=== PATIENT | female | born 1995 | race Caucasian/White ===

== ENCOUNTER 2020-10-14 10:36 | Emergency (ER) | payer MEDICAID, SELFPAY ==
[2020-10-14 10:39] VITALS: BP 114/80; PULSE 83; RESP 16; TEMP 36.9; O2SAT 100; BMI 20.6
--- NOTE | 2020-10-14 11:37 | ED_ITS ---
HPI - Skin/Abscess/Foreign Bdy General Chief complaint: Skin/Abscess/Foreign Body Stated complaint: rash on back Time Seen by Provider: 10/14/20 11:37 Source: patient, caseworker protective services and other (Legal guardian) Mode of arrival: ambulatory Limitations: no limitations History of Present Illness HPI narrative: This is a 24-year-old female presented with her legal guardian for evaluation of right buttock area cellulitis/abscess. 24-year-old female who Brown to skin infection and abscesses formation, patient was evaluated recently by her PCP for right buttock area infection, patient responded well to antibiotic and infection got better, patient finished a course of antibiotic now she is complaining of infection in the same spot. Questioning abscess formation in the right buttock area. Patient declined otherwise fever or chills. Related Data Previous Rx's Medication Instructions Recorded doxycycline hyclate 100 mg PO BID #20 tab 10/14/20 Allergies Allergy/AdvReac Type Severity Reaction Status Date / Time No Known Allergies Allergy Verified 10/14/20 10:45 [No Known Allergies*] Review of Systems Review of Systems: All other systems are reviewed and are negative Constitutional: Reports as per HPI and Reports no additional constitutional complaints Eyes: Reports as per HPI and Reports no additional eye complaints Reports system reviewed and no additional complaints, except as documented Cardiovascular: Reports as per HPI and Reports no additional cardiovascular complaints Respiratory: Reports as per HPI and Reports no additional respiratory complaints Gastrointestinal: Reports as per HPI and Reports no additional gastrointestinal complaints Genitourinary: Reports no additional female genitourinary complaints Musculoskeletal: Reports no additional musculoskeletal complaints Skin/Breast: Reports system reviewed and no additional complaints, except as docu Psychiatric: Reports no additional psychiatric complaints Endocrine: Reports no additional endocrine complaints Hematologic/Lymphatic: Reports no additional hematologic/lymphatic complaints Allergic/Immunologic: Reports no additional allergic/immunologic complaints Reports system reviewed and no additional complaints, except as documented and R eports Abnormal speech present [facility] Past Medical History Medical History delivery delivered Social History Social History Smoked in Last 30 Days: No Use of substances other than those prescribed or required for medical reasons: No Advance Directives: No Advance Directives Information Provided: No Physical Exam Vital Signs: Vital Signs: Last Vital Signs Temp 98.4 F 10/14/20 10:39 Pulse 83 10/14/20 10:39 Resp 16 10/14/20 10:39 BP 114/80 10/14/20 10:39 Pulse Ox 100 10/14/20 10:39 Body Mass Index 20.6 Vital signs have been reviewed as appeared to be correct. Blood pressure normal. Heart rate normal. Respiration rate normal. Temperature normal. Oxygen saturation normal. Appearance: Alert. Oriented X3. No acute distress. Head: Normal external exam. Normocephalic. Atraumatic. No Man signs noted. No raccoon eyes noted Eyes: PERRLA. EOMI. Conjunctiva and sclera normal. Eyelids normal. ENT: TM's Normal. Pharynx normal. Uvula midline. Moist mucous membranes. No trismus noted. No drooling noted. No muffled voice noted. Neck: Normal inspection. Neck supple. FROM. No adenopathy. Thyroid Normal. No meningeal signs. No neck mass noted. CVS: Normal heart rate and rhythm. Heart sound normal. No murmurs noted. Pulses normal throughout. Respiratory: No respiratory distress. Painless inspiration. Breath sounds normal. No wheezes/rales/rhonchi noted. Chest nontender. No accessory muscle usage noted or decreased air movement noted. Abdomen: Soft and nontender. Bowel sounds normal in all 4 quadrants. No distention noted. No organomegaly noted. No visible injury noted. Back: No CVA tenderness. Full range of motion noted. Skin: Skin warm and dry. Normal skin color. Normal skin turgor. No rashes/lesions/lacerations noted. Extremities: 3 x 3 cm area in the center of right gluteal area, area of redness, hotness, tenderness, no fluctuation, no discrete abscess. Neuro: Oriented X 3. No motor deficit. No sensory deficit. Reflexes normal. Course Course Course Narrative: Right gluteal area cellulitis with no abscess. Patient responded to antibiotic in the past. Will discharge the patient on another course of doxycycline have the patient come back for wound check in 2-3 days. Discharge Plan Discharge Clinical Impression: Cellulitis Qualifiers: Site of cellulitis: buttock Qualified Code(s): L03.317 - Cellulitis of buttock Patient Disposition: Home, Self-Care Instructions: Cellulitis (ED) Additional Instructions: Come back to the emergency department in 2-3 days for re-evaluation of your skin infection. Set in hot Sitz bath 2 to 3 times a day. Prescriptions: New doxycycline hyclate 100 mg tablet 100 mg PO BID Qty: 20 RF: 0 Referrals: Soraida Mcpherson MD [Primary Care Provider] - 1 week
== END 2020-10-14 11:55 | disposition home or self-care (01) ==
PROVIDERS: Emergency Provider Emergency Medicine; PCP Internal Medicine
DX: L03.317 Cellulitis of buttock (principal); Z79.899 Other long term (current) drug therapy
CPT/HCPCS: 99283

== ENCOUNTER 2022-12-30 18:58 | Emergency (ER) | payer MEDICAID, SELFPAY ==
[2022-12-30 19:04] VITALS: BP 120/67; PULSE 97; RESP 16; TEMP 36.6; O2SAT 95; BMI 28.3
--- NOTE | 2022-12-30 20:10 | ED_ITS ---
HPI - Animal Bite General Chief Complaint: Animal Bite Stated Complaint: Dog bite Time Seen by Provider: 12/30/22 19:52 Source: patient and family Mode of arrival: ambulatory Limitations: other History of Present Illness HPI narrative: 27-year-old female Moldovan-speaking with developmental delay nonverbal at baseline presents to emergency department with her father after a dog bite to her right arm. Patient owns a dog the dog is up-to-date on its shots patient is not up-to-date on tetanus. Patient has 2 cm gash to the right forearm. Patient denies fevers chills cough nausea vomiting diarrhea. Related Data Previous Rx's Medication Instructions Recorded doxycycline hyclate 100 mg tablet 100 mg PO BID #20 tabs 10/14/20 amoxicillin-potassium clavulanate 2 tab PO BID Dog bite #20 tabs 12/30/22 1,000 mg-62.5 mg tablet,ext.rel 12hr (Augmentin XR) Allergies Allergy/AdvReac Type Severity Reaction Status Date / Time No Known Allergies Allergy Verified 12/30/22 19:10 [No Known Allergies*] Review of Systems Review of Systems: Unable to obtain patient is nonverbal per diet has been acting normally PMFSH Past Medical History Medical History delivery delivered Social History Social History Advance Directives: No Advance Directives Information Provided: No Physical Exam ED Vital Signs: Vital Signs - 24 hr 12/30/22 19:04 Temperature 97.8 F Pulse Rate 97 Respiratory Rate 16 Blood Pressure 120/67 Pulse Oximetry 95 Oxygen Delivery Method Room Air BMI result Body Mass Index 28.3 General: Well-appearing well-nourished in no signs of distress HEENT: Normocephalic atraumatic Neck: No signs of JVD, no masses no tenderness or lymphadenopathy Cardiovascular: Regular rate and rhythm Respiratory: Clear to auscultation bilaterally Abdomen: Soft nontender no masses Extremities: Normal pedal pulses no signs of edema Skin: Small injury to right forearm Dry warm no rashes Back: No tenderness full ROM Medical Decision Making Medical Decision Making MDM Narrative: Dog bite I will start the patient on Augmentin patient otherwise looks well I did update tetanus and give some ibuprofen. Differential Diagnosis Differential Diagnoses: The differential diagnosis associated with the presentation includes Dog bite what to close by secondary intention. External Record Review External record reviewed: Inpatient record Discharge Plan Discharge Clinical Impression: Bite by animal, Dog bite Patient Disposition: Home, Self-Care Instructions: Animal Bite (ED) Additional Instructions: You were seen today for a dog bite. Please watch for signs of infection Please call to follow up. Prescriptions: New amoxicillin-pot clavulanate [Augmentin XR] 1,000-62.5 mg tablet extended release 12 hr 2 tab PO BID Qty: 20 0RF No Action doxycycline hyclate 100 mg tablet 100 mg PO BID Qty: 20 0RF
[2022-12-30] MEDS: Ibuprofen 400 MG TABLET PO (20:19)
[2022-12-30] MEDS: Amoxicillin/Potassium Clav 875 MG TABLET PO (20:19)
[2022-12-30] MEDS: Diphth,Pertus(ACell),Tet Adult 0.5 ML SYRINGE IM (20:20)
--- NOTE | 2022-12-30 20:24 | PC.NURSE ---
pt medicated per AUG tetanus updated. VIS given
== END 2022-12-30 20:26 | disposition home or self-care (01) ==
PROVIDERS: Emergency Provider Student in an Organized Health Care Education/Training Program; PCP Internal Medicine
DX: S50.871A Other superficial bite of right forearm, initial encounter (principal); W54.0XXA Bitten by dog, initial encounter; Y93.9 Activity, unspecified; Y92.9 Unspecified place or not applicable; Y99.9 Unspecified external cause status
CPT/HCPCS: 90471; 90715; 99283; 99284

== ENCOUNTER 2024-08-23 13:21 | Outpatient (REF) | payer MEDICAID, SELFPAY ==
--- OUTSIDE RECORDS SUMMARY | 2024-08-23 16:43 | XMS_ITS | Clinical Summary ---
Author Organization [employer] Address [address] [place] [address] [address] [place] [address] Care Team Providers Care Mutton Puncher Name Role Phone Soraida Mcpherson MD Primary Care Provide r Allergies No known active allergies Medications ibuprofen 600 MG tabletIndicatio ns:Dental abscess Take 1 tablet (600 mg) by mouth every 6 (six) hours if needed for mild pain for up to 20 doses. 20 tablet 3 Active Additional Information Patient not taking.Reported on 09/08/2022 Sod Fluoride-Potass ium Nitrate 1.1-5 % pasteIndication s:Dental caries [place] teeth for 2 minutes, morning and night. Spit, do not rinse. Do not eat or drink anything for 30 minutes following brushing. 96 g 3 3 Active chlorhexidine (Peridex) 0.12 % solutionIndicat ions:Gingivitis Swish for 30 seconds twice per day, morning and night. Use for 7 days. Do not use for more than 14 to prevent staining of teeth. 473 mL 3 Active Additional Information Patient not taking.Reported on 09/08/2022 polyethylene glycol, PEG, 3350 (MiraLax) 17 GM/SCOOP powder 17 grams in 8-12 oz fluid like water at bedtime prn constipation 527 g 2 4 Active docusate sodium (Colace) 100 MG capsule Take 1 tab po bid prn constipation 60 capsule 3 4 Active Active Problems Problem Noted Date Diagnosed Date Encounter for Papanicolaou smear of cervix 08/23 Assessment & Plan (08/23/2024 9:34 AM EST): PAP smear done, patient will be contacted with results Encounter for preventive care 06/08/2024 Assessment & Plan (06/08/2024 12:01 PM EST): See HPI Epigastric pain 06/26/2023 06/26/2023 Cognitive disorder 09/28/2017 06/26/2023 Encounters Date Type Department Care Team Description 08/23/2024 9:00 AM EST Procedure Visit [facility] MED[facility]INE [address] [place] [id number] Soraida Mcpherson MD Encounter for Papanicolaou smear of cervix (Primary Dx) 08/23/2024 Travel 06/08/2024 10:45 AM EST Office Visit [address] [id number] Soraida Mcpherson MD Encounter for preventive care (Primary Dx); Encounter for immunization 06/08/2024 Travel 06/06/[address] [address] Vishal Reece MA Chart Prep 05/30/2024 Patient Outreach [address] [address] Soraida Mcpherson MD Pre-visit Planning (SDOH screening negative and tobacco screening negative) from Last 3 Months Immunizations Name Administration Dates Next Due HPV 9-Valent 02/07/2019,12/27/2018 Influenza injectable quadrivalent preservative f ree 08/06/2018 Influenza, seasonal, injectable, preservative fr ee 06/08/2024 Tdap 12/30/2022 Social History Tobacco Use Types Packs/Day Years Used Date Smoking Tobacco: Never Passive Smoke Exposure: Never Smokeless Tobacco: Never Tobacco Cessation:Counseling Given: Not Answered Alcohol Use Standard Drinks/Week Comments Never 0 (1 standard drink = 0.6 oz pur e alcohol) Depression Answer Date Recorded Patient Health Questionnaire-9 Score 0 06/08/2024 Patient Health Questionnaire-9 Score 0 06/08/2024 Last PHQ-9: Questionnaire Data Not on file 1 08/09/2023 Housing Stability Answer Date Recorded What is your housing situation today? I have yana sing 05/30/[address] you li ve. Do you have problems with any of the following? None of the above 05/30/2024 Food Insecurity Answer Date Recorded Within the past 12 months, y ou worried that your food would run out before you got money to buy more: Never True 05/30/2024 Within the past 12 months,th e food you bought just didn't last and you didn't have enough money to get more: Never True 02/2024 Transportation Answer Date Recorded In the past 12 months, has l ack of transportation kept you from medical appts, meetings, work or from getting things needed for daily living? No 05/30/2024 Utilities Answer Date Recorded In the past 12 months, has t he electric, gas, oil or water company threatened to shut off services in your home? No 05/30/2024 Depression Answer Date Recorded Patient Health Questionnaire-2 Score 0 06/08/2024 Internet Access Answer Date Recorded Internet Access Q1 Yes 05/30/2024 Internet Access Q2 Not on file 05/30/2024 Comments No Sex and Gender Information Value Date Recorded Sex Assigned at Female 04/21/2022 10:33 AM EDT Legal Sex Female 10:33 AM EDT Gender Identity Female 07/24/2022 8:14 AM EST Sexual Orientation Straight 04/21/2022 10 :33 AM EDT Last Filed Vital Signs Vital Sign Reading Time Taken Comments Blood Pressure 115/80 08/23/2024 9:12 AM EST Pulse 78 08/23/2024 9:12 AM EST Temperature 36.2 ??C (97.1 ??F) 08/23/2024 9:12 AM ES T Respiratory Rate 18 08/23/2024 9:12 AM EST Oxygen Saturation 99% 08/23/2024 9:12 AM EST Inhaled Oxygen Concentration - - Weight 68.6 kg (151 lb 3.2 oz) 08/23/2024 9:12 A M EST Height 154.9 cm (5' 1 ) 08/23/2024 9:12 AM EST Body Mass Index 28.57 08/23/2024 9:12 AM EST Plan of Treatment Health Maintenance Due Date Last Done Comments HIV Screening 1993 Family Planning (PISQ) 2008 Hepatitis C Screening 12/10/2011 Hepatitis B Vaccines (1 of 3 - 19+ 3-dose series) 2012 Pap Smear 2014 HPV Vaccines (3 - 3-dose series) 06/29/2019 02/07/2019, 12/27/2018 Dental Oral Exam 02/22/2023 08/21/2022 Dental Prophylaxis 02/22/2023 08/21/2022 Dental X-Ray: Bitewings 07/22/2023 07/21/2022 Cervical Cancer Screening 12/23/2023 HPV/Cotest 12/23/2023 12/22/2018 COVID-19 Vaccine (4 - 2023-2 5 season) 2024 09/10/2021, 02/24/2021, 02/03/2021 SDOH Screening 05/30/2025 05/30/2024 Alcohol/Substance Use Screening 06/08/2025 06/08/2024 Depression Screening 06/08/2025 06/08/2024, 06/08/2024 Dental X-Ray: Full Mouth 07/22/2025 07/21/2022 Tobacco Screening 08/23/2025 08/23/2024 DTaP/Tdap/Td Vaccines (2 - T d or Tdap) 12/30/2032 12/30/2022 Zoster Vaccines (1 of 2) 12/10/2043 RSV Patients and Patients Aged 60 years or older (1 - 1-dose 75+ series) 2068 Influenza Vaccine Completed 06/08/2024, 08/06/2018 HIB Vaccines Aged Out No longer eligi ble based on patient's age to complete this topic Hepatitis A Vaccines Aged Out No long er eligible based on patient's age to complete this topic IPV Vaccines Aged Out No longer eligi ble based on patient's age to complete this topic Meningococcal Vaccine Aged Out No lorraine suhas eligible based on patient's age to complete this topic Pneumococcal Vaccine: Pediatrics (0 to 5 Years) and At-Risk Patients (6 to 49) Years) Aged Out No longer eligible b ased on patient's age to complete this topic RSV under 20 months Aged Out No longe r eligible based on patient's age to complete this topic Rotavirus Vaccines Aged Out No longer eligible based on patient's age to complete this topic Procedures Procedure Name Priority Date/Time Associated Diagnosis Comments PROPHYLAXIS - ADULT Routine 08/21/2022 1 0:30 AM EST Dental caries Gingivitis PERIODIC ORAL EVALUATION - ESTABLISHED PATIENT Routine 08/21/2022 10:30 AM EST Dental caries Gingivitis PANORAMIC RADIOGRAPHIC IMAGE Routine 07/21/2022 9:00 AM EST Dental abscess BITEWING - SINGLE RADIOGRAPHIC IMAGE Routine 07/21/2022 9:00 AM EST Dental abscess ZZZ HISTORICAL HPV MRNA E6/E7 Routine 12/22/2018 10:55 AM EDT from Last 3 Months or Most Recently Relevant to Health Maintenance Results * HPV mRNA E6/E7 (12/22/2018 10:55 AM EDT) [facility] HPV mRNA E6/E7 Not Detected NOT DETECTED [facility] Comment: This test was performed using the APTIMA(R) HPV Assay ([employer] This assay detects E6/E7 viral messenger RNA (mRNA) from 14 high-risk HPV types (16,18,31,33,35,39,45,51, 52,56,58,59,66,68). For additional information please refer to: http://education.[employer]/faq/WWU031a6 (This link is being provided for informational/ educational purposes only.) The analytical performance characteristics of this assay have been determined by [employer] [place], [place]. The modifications have not been cleared or approved by the FDA. This assay has been validated pursuant to the CLIA regulations and is used for clinical purposes. Test Performed by [facility], [employer] [facility], [address] [place] [address] Jerod Mckeon M.D., Ph.D., Director of Laboratories , CLIA [id number] Please note: ??Effective 03/03/2016, HPV testing will be performed using [employer]'s APTIMA test which targets mRNA. Detecting mRNA instead of DNA, as in older methods, offers significant improvements in specificity. 12/22/2018 10:5 5 AM EDT us Soraida Cole MD HISTORICAL/NON ORDERA BLE LABS Final Result [facility] [address] from Last 3 Months or Most Recently Relevant to Health Maintenance [place] [facility] ADULT Care Teams Mutton Puncher Relationship Specialty Start Date End Date Soraida Mcpherson MD [address] [place] [id number] PCP - General Family Medicine 03/03/18
--- OUTSIDE RECORDS SUMMARY | 2024-08-23 16:43 | XMS_ITS | Encounter Summary ---
Author Organization [employer] Address [address] [facility] [address]t [place] [address] Care Team Providers Care Credit Consultant Name Role Phone Soraida Mcpherson MD Primary Care Provide r Encounter Details Date Type Department Care Team (Latest Contact Info) Description 08/23/2024 9:00 AM EST Procedure Visit [facility] MEDICINE [address] [place], [place] [phone] Soraida Mcpherson MD [address] [place], [place] [phone] Encounter for Papanicolaou smear of cervix (Primary Dx) Social History Tobacco Use Types Packs/Day Years Used Date Smoking Tobacco: Never Passive Smoke Exposure: Never Smokeless Tobacco: Never Alcohol Use Standard Drinks/Week Comments Never 0 (1 standard drink = 0.6 oz pur e alcohol) Depression Answer Date Recorded Patient Health Questionnaire-9 Score 0 06/08/2024 Patient Health Questionnaire-9 Score 0 06/08/2024 Last PHQ-9: Questionnaire Data Not on file 1 08/09/2023 Housing Stability Answer Date Recorded What is your housing situation today? I have yanacamilla campos 05/30/[address] you li [...] Orientation Straight 04/21/2022 10 :33 AM EDT documented as of this encounter Last Filed Vital Signs Vital Sign Reading [...] Mass Index 28.57 08/23/2024 9:12 AM EST documented in this encounter Progress Notes * Soraida Cole MD - 08/23/2024 9:00 AM EST SUBJECTIVE: Laurie Lyon is a 28 y.o. year old female who presents for Pap . Patient denies breast pain, lumps, changes in ski, nipple retraction or discharge Patient denies pelvic pain, irregular bleeding or vaginal discharge Social History Social History Narrative Not on file Patient Active Problem List Diagnosis Cognitive disorder Epigastric pain Encounter for preventive care Encounter for Papanicolaou smear of cervix No family history on file. Review of Systems Constitutional: Negative. HENT: Negative. Respiratory: Negative. Cardiovascular: Negative. Genitourinary: Negative. OBJECTIVE: Vitals: 08/23/24 0912 BP: 115/80 BP Location: Left arm Patient Position: Sitting BP Cuff Size: Adult Pulse: 78 Resp: 18 Temp: 97.1 ??F (36.2 ??C) TempSrc: Oral SpO2: 99% Weight: 151 lb 3.2 oz (68.6 kg) Height: 5' 1 (1.549 m) Physical Exam Exam conducted with a biology teacher present. Constitutional: Appearance: Normal appearance. Cardiovascular: Rate and Rhythm: Normal rate and regular rhythm. Pulmonary: Effort: Pulmonary effort is normal. Breath sounds: Normal breath sounds. Abdominal: General: Abdomen is flat. Palpations: Abdomen is soft. Genitourinary: Vagina: Normal. Cervix: Normal. Uterus: Normal. Neurological: Mental Status: She is alert. Follow Up: No follow-ups on file. Current Outpatient Medications on File Prior to Visit Medication Sig Dispense Refill chlorhexidine (Peridex) 0.12 % solution Swish for 30 seconds twice per day, morning and night. Use for 7 days. Do not use for more than 14 to prevent staining of teeth. (Patient not taking: Reported on 09/08/2022) 473 mL 0 docusate sodium (Colace) 100 MG capsule Take 1 tab po bid prn constipation 60 capsule 3 ibuprofen 600 MG tablet Take 1 tablet (600 mg) by mouth every 6 (six) hours if needed for mild painfor up to 20 doses. (Patient not taking: Reported on 09/08/2022) 20 tablet 0 polyethylene glycol, PEG, 3350 (MiraLax) 17 GM/SCOOP powder 17 grams in 8-12 oz fluid like water atbedtime prn constipation 527 g 2 Sod Fluoride-Potassium Nitrate 1.1-5 % paste Erick teeth for 2 minutes, morning and night. Spit, donot rinse. Do not eat or drink anything for 30 minutes following brushing. 96 g 3 No current facility-administered medications on file prior to visit. Problem List Items Addressed This Visit Encounter for Papanicolaou smear of cervix - Primary PAP smear done, patient will be contacted with results Relevant Orders Pap Smear documented in this encounter Miscellaneous Notes * Assessment & Plan Note - Soraida Cole MD - 08/23/2024 9:34 AM EST Associated Problem(s): Encounter for Papanicolaou smear of cervix PAP smear done, patient will be contacted with results documented in this encounter Plan of Treatment Scheduled Orders Name Type Priority Associated Diagnoses Orde r Schedule Pap Smear Pathology and Cytology Routine Encounter for Papanicolaou smear of cervix Ordered: 08/23/2024 documented as of this encounter Visit Diagnoses Diagnosis Encounter for Papanicolaou smear of cervix- Primary documented in this encounter Additional Health Concerns Assessment Noted Time PHQ-9 Depression Total Score: 0 06/08/20 24 10:53 AM EST documented as of this encounter Care Teams Credit Consultant Relationship Specialty Start Date End Date Soraida Mcpherson MD [address] [place] [id number] PCP - General Family Medicine 03/03/18 documented as of this encounter
--- OUTSIDE RECORDS SUMMARY | 2024-08-23 16:43 | XMS_ITS | Encounter Summary ---
Author Organization [facility] Address [address] [place] [address] [address] [place] [address] Care Team Providers Care Lime Supervisor Name Role Phone Soraida Mcpherson MD Primary Care Provide r Encounter Details Date Type Department Care Team (Latest Contact Info) Description 07/27/2018 Abstract [facility] CONVERSIONS Dental, Provider, DDS Social History Tobacco Use Types Packs/Day Years Used Date Smoking Tobacco: Never Assessed Comments Unknown Sex and Gender Information Value Date Recorded Sex Assigned at Female 04/21/2022 10:33 AM EDT Legal Sex Female 10:33 AM EDT Gender Identity Female 07/24/2022 8:14 AM EST Sexual Orientation Straight 04/21/2022 10 :33 AM EDT documented as of this encounter Plan of Treatment Not on file documented as of this encounter Visit Diagnoses Not on filedocumented in this encounter Care Teams Lime Supervisor Relationship Specialty Start Date End Date Soraida Mcpherson MD [address] [place] [id number] PCP - General Family Medicine 03/03/18 documented as of this encounter
--- OUTSIDE RECORDS SUMMARY | 2024-08-23 16:43 | XMS_ITS | Encounter Summary ---
Author Organization [employer] Address [address] [facility] [address] [place] [address] Care Team Providers Care Cold Mill Inspector Name Role Phone Soraida Mcpherson MD Primary Care Provide r Encounter Details Date Type Department Care Team (Latest Contact Info) Description 08/23/2024 Travel Social History Tobacco Use Types Packs/Day Years [...] your housing situation today? I have yana campos 05/30/[address] you [...] Diagnoses Not on filedocumented in this encounter Additional Health Concerns Assessment Noted Time PHQ-9 Depression Total Score: 0 06/08/20 24 10:53 AM EST documented as of this encounter Care Teams Cold Mill Inspector Relationship Specialty Start Date End Date Soraida Mcpherson MD [address] [place] [address] PCP - General Family Medicine 03/03/18 documented as of this encounter
--- OUTSIDE RECORDS SUMMARY | 2024-08-23 16:43 | XMS_ITS | Encounter Summary ---
Author Organization [facility] Address [address] [place] [address] [address] [place] [address] Care Team Providers Care Sales Clerk Supervisor Name Role Phone Soraida Mcpherson MD Primary Care Provide r Encounter Details Date Type Department Care Team (Latest Contact Info) Description 03/06/2022 Abstract [facility] CONVERSIONS Dental, Provider, DDS Social History Tobacco [...] on filedocumented in this encounter Care Teams Sales Clerk Supervisor Relationship Specialty Start Date End Date Soraida Mcpherson MD [address] [place] [id number] PCP - General Family Medicine 03/03/18 documented as of this encounter
[2024-08-26 14:59] LABS: HPV Genotype 16 Negative (Negative); HPV Genotype 18 Negative (Negative); HPV High Risk Negative (Negative)
== END 2024-08-23 13:22 | disposition home or self-care (01) ==
LOC: HO.HHCLNP 13:21
PROVIDERS: Visit Provider Internal Medicine
DX: Z12.4 Encounter for screening for malignant neoplasm of cervix (principal)
CPT/HCPCS: 87626; 88175